=== PATIENT | male | born 1985 | race Caucasian/White ===

== ENCOUNTER → 2020-10-11 13:32 | Outpatient (BNVA) | payer MEDICARE, MEDICAID, SELFPAY | PROVIDERS: PCP Internal Medicine; Referring Provider Internal Medicine; Visit Provider Nurse Practitioner Family | DX: M54.2 Cervicalgia (principal) | CPT/HCPCS: 99202 ==

== ENCOUNTER 2020-11-30 14:00 | Outpatient (RCR) | payer OTHER, MEDICARE, MEDICAID, SELFPAY ==
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
== END 2020-12-25 15:39 | disposition other institution (70) ==
LOC: HO.PT 14:00
PROVIDERS: Visit Provider Anesthesiology
DX: M79.18 Myalgia, other site (principal)
CPT/HCPCS: 97110; 97112; 97140; 97161